=== PATIENT | female | born 1980 | race Caucasian/White ===

== ENCOUNTER 2021-06-24 16:03 | Inpatient (IN) ==
[2021-06-24 16:31] LABS: Bilirubin,Urine Negative (Negative); Blood,Urine Negative (Negative); Clarity,Urine Clear (Clear); Color,Urine Light-Yellow (Yellow); Glucose,Urine (UA) Normal (Normal); Hyaline Casts,Urine Few per lpf (None Seen); Ketones,Urine Negative (Negative); Leukocyte Esterase,Urine Negative (Negative); Mucus,Urine Few per lpf (None-Few); Nitrite,Urine Negative (Negative); Protein,Urine 30 mg/dL (Neg-Trace); RBC,Urine 0-3 per hpf (0-3); Squamous Epithelial Cell,Urine Few per hpf (None-Few); Urobilinogen,Urine Normal (Normal); WBC,Urine 0-3 per hpf (0-3)
[2021-06-24 16:45] LABS: Amphetamine Screen,Urine Negative ng/mL (Cutoff=1000); Barbiturate Screen,Urine Negative ng/mL (Cutoff=200); Benzodiazepines Screen,Urine Positive ng/mL (Cutoff=200); Cannabinoid Screen,Urine Negative ng/mL (Cutoff = 50); Cocaine Screen,Urine Negative ng/mL (Cutoff= 300); Opiate Screen,Urine Positive ng/mL (Cutoff=300); Phencyclidine Screen,Urine Negative ng/mL (Cutoff=25)
[2021-06-24 16:57] LABS: Basophils # 0.1 K/mcL (0.0-0.2); Basophils % 0.6 %; Eosinophils # 0.1 K/mcL (0.0-0.6); Eosinophils % 0.9 %; Hematocrit 36.2 % (35.3-44.9); Hemoglobin 12.3 g/dL (11.5-15.4); Immature Granulocytes % 1.3 % (0-4); Lymphocytes # 4.2 K/mcL (0.6-4.6); Lymphocytes % 53.6 %; Mean Corpuscular Hemoglobin 32.6 pg (28.0-33.3); Mean Platelet Volume 9.8 fL (9.4-12.4); Monocytes # 0.6 K/mcL (0.0-1.3); Monocytes % 7.7 %; Neutrophils # 2.8 K/mcL (1.6-8.9); Platelet Count 288 K/mcL (140-400); Red Blood Count 3.77 M/mcL (3.82-4.97); Red Cell Distribution Width 13.3 % (11.5-14.5); Segmented Neutrophils % 35.9 %; White Blood Count 7.8 K/mcL (4.3-11.1)
[2021-06-24 17:28] LABS: Acetaminophen 21 mcg/mL (10-20); BUN/Creatinine Ratio 13 (6-26); Blood Urea Nitrogen 12 mg/dL (6-20); Calcium 8.8 mg/dL (8.6-10.3); Carbon Dioxide 28 mEq/L (23-29); Chloride 104 mEq/L (98-107); Chol/HDL Ratio 2.9 (0-4.9); Cholesterol 194 mg/dL (< 200); Ethanol < 10 mg/dL (Less than 10); Glucose 90 mg/dL (70-105); HDL Cholesterol 68 mg/dL (40-59); LDL Cholesterol,Calculated 94 mg/dL (< 100); Osmolality,Calculated 291 (280-300); Potassium 3.7 mEq/L (3.5-5.1); Salicylate < 2.5 mg/dL (15.0-30.0); Sodium 141 mEq/L (136-145); Triglycerides 158 mg/dL (< 150); eGFR For African Americans > 60 (> 60); eGFR For Non-African Americans > 60 (> 60)
[2021-06-24 17:53] LABS: Estimated Average Glucose 108 mg/dl; Hemoglobin A1C 5.4 %
[2021-06-24 19:02] LABS: Influenza A PCR Negative (Negative); Influenza B PCR Negative (Negative); Resp. Syncytial Virus PCR Negative (Negative); SARS-CoV-2 by PCR (In House) Negative (Negative)
[2021-06-24] MEDS ORDERED: *HR* LORazepam 2 MG/ML VIAL IM PRN (22:30)
[2021-06-24] MEDS ORDERED: Haloperidol Lactate 5 MG/ML VIAL IM PRN (22:30)
[2021-06-24] MEDS ORDERED: haloperidoL 5 MG TABLET PO PRN (22:30)
[2021-06-24] MEDS ORDERED: *HR* LORazepam 1 MG TABLET PO PRN (22:30)
[2021-06-24] MEDS ORDERED: QUEtiapine Fumarate 300 MG TABLET PO SCH (23:00)
[2021-06-24] MEDS: Gabapentin 400 MG CAPSULE PO SCH (23:45)
[2021-06-24] MEDS: clonazePAM 1 MG TABLET PO SCH (23:45)
[2021-06-24] MEDS: QUEtiapine Fumarate 300 MG TABLET PO SCH (23:45)
[2021-06-24] MEDS: *HR* HYDROcodone/Acet 5/325 mg TABLET PO SCH (23:45)
[2021-06-25] MEDS: *HR* HYDROcodone/Acet 5/325 mg TABLET PO SCH ×3 (05:21→16:48)
[2021-06-25] MEDS ORDERED: Nicotine 21 MG PATCH.TD24 TD SCH (05:30)
[2021-06-25] MEDS: Nicotine 21 MG PATCH.TD24 TD SCH (06:04)
[2021-06-25] MEDS: clonazePAM 1 MG TABLET PO SCH ×2 (09:29→20:28)
[2021-06-25] MEDS: Gabapentin 400 MG CAPSULE PO SCH ×3 (09:30→20:28)
[2021-06-25] MEDS: lamoTRIgine 100 MG TABLET PO SCH (09:34)
[2021-06-25] MEDS: hydrOXYzine pamoate 25 MG CAPSULE PO PRN (15:22)
[2021-06-25] MEDS: QUEtiapine Fumarate 300 MG TABLET PO SCH (20:27)
[2021-06-26] MEDS: Acetaminophen 325 MG TABLET PO PRN ×2 (01:57→20:06)
[2021-06-26] MEDS: hydrOXYzine pamoate 25 MG CAPSULE PO PRN ×2 (01:57→20:05)
[2021-06-26] MEDS: *HR* HYDROcodone/Acet 5/325 mg TABLET PO SCH ×2 (02:00→05:35)
[2021-06-26] MEDS: Nicotine 21 MG PATCH.TD24 TD SCH ×2 (07:02→08:15)
[2021-06-26] MEDS: clonazePAM 1 MG TABLET PO SCH ×2 (08:09→20:05)
[2021-06-26] MEDS: lamoTRIgine 100 MG TABLET PO SCH (08:09)
[2021-06-26] MEDS: Gabapentin 400 MG CAPSULE PO SCH ×3 (08:09→20:05)
[2021-06-26] MEDS: *HR* HYDROcodone/Acet 5/325 mg TABLET PO PRN ×3 (09:36→22:34)
[2021-06-26] MEDS: QUEtiapine Fumarate 300 MG TABLET PO SCH (20:06)
[2021-06-27] MEDS: *HR* HYDROcodone/Acet 5/325 mg TABLET PO PRN ×3 (06:12→18:12)
[2021-06-27] MEDS: clonazePAM 1 MG TABLET PO SCH ×2 (09:02→20:35)
[2021-06-27] MEDS: Gabapentin 400 MG CAPSULE PO SCH ×3 (09:02→20:35)
[2021-06-27] MEDS: lamoTRIgine 100 MG TABLET PO SCH (09:02)
[2021-06-27] MEDS: Nicotine 21 MG PATCH.TD24 TD SCH (09:03)
[2021-06-27] MEDS: QUEtiapine Fumarate 300 MG TABLET PO SCH (20:36)
[2021-06-27] MEDS: Acetaminophen 325 MG TABLET PO PRN (20:37)
[2021-06-27] MEDS: hydrOXYzine pamoate 25 MG CAPSULE PO PRN (20:38)
[2021-06-28] MEDS: *HR* HYDROcodone/Acet 5/325 mg TABLET PO PRN ×3 (05:15→17:39)
[2021-06-28] MEDS: lamoTRIgine 100 MG TABLET PO SCH (08:41)
[2021-06-28] MEDS: Gabapentin 400 MG CAPSULE PO SCH ×3 (08:41→20:31)
[2021-06-28] MEDS: clonazePAM 1 MG TABLET PO SCH ×2 (08:42→20:32)
[2021-06-28] MEDS: Nicotine 21 MG PATCH.TD24 TD SCH (08:43)
[2021-06-28] MEDS: hydrOXYzine pamoate 25 MG CAPSULE PO PRN (18:26)
[2021-06-28] MEDS: Acetaminophen 325 MG TABLET PO PRN (20:31)
[2021-06-28] MEDS: QUEtiapine Fumarate 300 MG TABLET PO SCH (20:31)
[2021-06-29] MEDS: *HR* HYDROcodone/Acet 5/325 mg TABLET PO PRN ×2 (03:33→10:18)
[2021-06-29 08:42] VITALS: BP 119/77; PULSE 91; TEMP 97.8; O2SAT 99
[2021-06-29] MEDS: clonazePAM 1 MG TABLET PO SCH (08:43)
[2021-06-29] MEDS: Nicotine 21 MG PATCH.TD24 TD SCH (08:43)
[2021-06-29] MEDS: lamoTRIgine 100 MG TABLET PO SCH (08:43)
[2021-06-29] MEDS: Gabapentin 400 MG CAPSULE PO SCH (08:43)
== END 2021-06-29 10:57 | disposition home or self-care (01) | DRG 753 ==
LOC: EMEROOARM 16:03 → 1ANU 22:17
PROVIDERS: ADMIT Psychiatry & Neurology Psychiatry; ATTEND Psychiatry & Neurology Psychiatry